=== PATIENT | female | born 1955 | race African-American/Black ===

== ENCOUNTER 2020-07-08 19:33 | Emergency (ER) | payer MEDICARE, MEDICAID ==
[~2020-07-08] VITALS: Ht 170.2 cm; Wt 64.0 kg
[2020-07-08] MEDS ORDERED: HYDR28GE TP (20:24)
[2020-07-08 20:40] VITALS: BP 136/95
== END 2020-07-08 21:29 | disposition home or self-care (01) ==
LOC: ER 19:33
DX: S01.311A Laceration without foreign body of right ear, initial encounter (principal); X58.XXXA Exposure to other specified factors, initial encounter; Y93.89 Activity, other specified; Y92.018 Other place in single-family (private) house as the place of occurrence of the external cause
CPT/HCPCS: 99281